=== PATIENT | male | born 1960 | race Caucasian/White ===

== ENCOUNTER 2024-06-06 06:19 | Day surgery (SDC) | payer MEDICARE, SELFPAY ==
[2024-06-06 07:34] LABS: Glucose - Point of Care 108 mg/dl (70-99)
== END 2024-06-06 09:16 | disposition home or self-care (01) ==
LOC: GI 06:19
PROVIDERS: ATTENDING PHYSICIAN Internal Medicine Gastroenterology
DX: Z12.11 Encounter for screening for malignant neoplasm of colon (principal); K64.8 Other hemorrhoids
CPT/HCPCS: G0121; 82962